=== PATIENT | male | born 1985 | race Caucasian/White ===

== ENCOUNTER 2016-11-25 19:49 | Emergency (ER) | payer OTHER ==
[~2016-11-25] VITALS: Ht 172.7 cm; Wt 117.9 kg
[2016-11-25] MEDS ORDERED: CARISOPRODOL 350 MG TAB PO ONE (21:00)
[2016-11-25] MEDS ORDERED: NORCO, ANEXSIA 5/325MG TABLET (HYDROcodone/ACETAMINOPHEN) PO ONE (21:00)
[2016-11-25] MEDS ORDERED: IBUP600T26 PO (21:06)
[2016-11-25] MEDS ORDERED: SOMA350T PO (21:06)
[2016-11-25 21:14] VITALS: BP 112/72
== END 2016-11-25 21:30 | disposition home or self-care (01) ==
LOC: M ED 20:34
DX: S33.5XXA Sprain of ligaments of lumbar spine, initial encounter (principal); X58.XXXA Exposure to other specified factors, initial encounter; Y92.89 Other specified places as the place of occurrence of the external cause; Y93.89 Activity, other specified; Y99.9 Unspecified external cause status